=== PATIENT | male | born 1995 | race Caucasian/White ===

== ENCOUNTER 2024-11-03 15:40 | Emergency (ER) | payer OTHER ==
[~2024-11-03] VITALS: Ht 177.8 cm; Wt 100.0 kg
[2024-11-03 16:06] VITALS: BP 121/84; PULSE 100; RESP 16; TEMP 99.1; O2SAT 99
--- NOTE | 2024-11-03 17:04 | DVH ---
CLINICAL INDICATION: LEFT ANKLE PAIN TECHNIQUE: 3 radiographic views of the left ankle were obtained. Comparison: None FINDINGS/IMPRESSION: There is acute comminuted fracture of the calcaneus with associated ankle and hindfoot soft tissue ed wanda, most prominent laterally. The visualized joint space is well maintained.
[2024-11-03] MEDS ORDERED: HYDR-4902 PO (17:18)
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
== END 2024-11-03 17:32 | disposition home or self-care (01) ==
LOC: ER 15:40
DX: S92.002A Unspecified fracture of left calcaneus, initial encounter for closed fracture (principal); V89.2XXA Person injured in unspecified motor-vehicle accident, traffic, initial encounter; Y93.55 Activity, bike riding; Y92.89 Other specified places as the place of occurrence of the external cause; Y99.8 Other external cause status
CPT/HCPCS: 29515; 73610